=== PATIENT | male | born 1970 | race Caucasian/White ===

== ENCOUNTER 2022-04-04 10:21 | Inpatient (IN) ==
[2022-04-04] MEDS ORDERED: ADENOSINE IV SOLN 3 MG/ML 2 ML VIAL IV ONE (10:32)
[2022-04-04] MEDS ORDERED: ASPIRIN CHEW 324 MG PO STA (10:36)
[2022-04-04] MEDS ORDERED: SODIUM CHLORIDE 0.9% 1000ML 1,000 ML IV STA (10:36)
[2022-04-04] MEDS ORDERED: ADENOSINE IV SOLN 3 MG/ML 2 ML VIAL IV STA ×2 (10:38)
[2022-04-04] MEDS ORDERED: LORazepam 2 MG/1 ML VIAL IV STA (10:38)
[2022-04-04] MEDS ORDERED: SODIUM CHLORIDE 0.9% 1000ML 1,000 ML IV ONE (10:38)
[2022-04-04] MEDS ORDERED: LORazepam 2 MG/1 ML VIAL ONE (10:41)
[2022-04-04] MEDS ORDERED: dilTIAZem HCl 5 MG/ML 5 ML VIAL IV STA (10:45)
[2022-04-04] MEDS ORDERED: STAT IV Infusion **Titration per Protocol STA (10:45)
[2022-04-04] MEDS ORDERED: dilTIAZem HCl 5 MG/ML 5 ML VIAL IV ONE (10:46)
[2022-04-04 11:01] LABS: Basophils # (auto) 0.04 K/uL (0-0.2); Basophils % (auto) 0.3 %; Eosinophils # (auto) 0.32 K/uL (0-0.50); Eosinophils % (auto) 2.5 %; Hemoglobin 15.1 g/dl (14.0-18.0); Immature Granulocytes # (auto) 0.04 K/uL (0.00-0.02); Immature Granulocytes % (auto) 0.3 %; Lymphocytes # (auto) 2.35 K/uL (1.2-3.4); Lymphocytes % (auto) 18.4 %; Mean Corpuscular Hemoglobin 32.9 pg (25.0-34.0); Mean Corpuscular Hgb Conc 32.8 g/dL (32.0-36.0); Mean Corpuscular Volume 100.2 fL (80.0-100.0); Mean Platelet Volume 9.8 fL (9.4-12.4); Monocytes # (auto) 0.87 K/uL (0.24-0.82); Monocytes % (auto) 6.8 %; Neutrophils # (auto) 9.12 K/uL (1.4-6.5); Neutrophils % (auto) 71.7 %; Platelet Count 294 K/uL (130-400); RDW Coefficient of Variation 13.2 % (11.5-14.5); RDW Standard Deviation 48.1 fL (36.4-46.3); Red Blood Count 4.59 M/uL (4.63-6.08); White Blood Count 12.74 K/ul (4.8-10.8)
--- NOTE | 2022-04-04 11:11 | Emergency Department Note ---
History of Present Illness General Chief Complaint: Cardiac Assessment Stated Complaint: HEART RACING/SWEATING/SOB LIGHTHEADED Time Seen by Provider: 04/04/22 10:31 History of Present Illness Provider Complaint: + rapid heart beat and + palpitations Onset (ago): 2 day(s) Duration: + Worsening Severity: severe Maximum Pain Intensity: 3 Current Pain Intensity: 3 Context: + occurred during rest and + awoke with symptoms Arrhythmia history: + atrial fibrillation (atrial flutter), + history of ablation (2) and + history of electrical cardioversion (4); no on anti- coagulants Associated symptoms: + chest pain, + shortness of breath and + diaphoresis; no syncope, no nausea, no vomiting or no cough Treatments prior to arrival: + beta-jacinto HPI narrative: Patient reports he is moving his daughter up to college from [place]. The patient reports he was sweaty in the hotel all of last night. Patient reports he was at the [place] and recently got back from vacation in [place] and was drinking heavily during concerts there. The patient states he returned from a vacation in yesterday. Past Med/Surg History Medical History Atrial fibrillation No pertinent family history Surgical History No pertinent past surgical history Social History Smoking Status: Never smoker Feels Safe at Home: Yes Review of Systems A total of 10 systems reviewed and were otherwise negative Physical Exam Vital Signs: Vital Signs - 24 hr 04/04/22 10:25 04/04/22 10:36 04/04/22 10:38 Pulse Rate 158 H 158 H 163 H Pulse Rate [Apical ] Pulse Rate from Sp O2 Sensor Pulse Rhythm Regular Respiratory Rate 22 22 19 Respiratory Effort / Characteristics Non-Labored Respiratory Depth Normal Blood Pressure 107/60 Blood Pressure [Le ft Arm] Blood Pressure Lidia n 75 Blood Pressure Lidia n [Left Arm] Pulse Oximetry 98 98 Oxygen Delivery Me thod Room Air Room Air Oxygen Flow Rate Sepsis Recent Feve r Within 48 Hours No Sepsis New/Unexpla ined Change in Men vicente Status No Sepsis Action Take n by Nursing No Action Required 04/04/22 10:45 04/04/22 10:46 04/04/22 10:48 Pulse Rate 164 H 163 H 164 H Pulse Rate [Apical ] Pulse Rate from Sp O2 Sensor Pulse Rhythm Respiratory Rate 18 24 24 Respiratory Effort / Characteristics Respiratory Depth Blood Pressure 94/70 L 92/68 L Blood Pressure [Le ft Arm] Blood Pressure Lidia n 78 76 Blood Pressure Lidia n [Left Arm] Pulse Oximetry Oxygen Delivery Me thod Oxygen Flow Rate Sepsis Recent Feve r Within 48 Hours Sepsis New/Unexpla ined Change in Men vicente Status Sepsis Action Take n by Nursing 04/04/22 10:51 04/04/22 10:57 04/04/22 11:00 Pulse Rate 164 H 164 H 164 H Pulse Rate [Apical ] Pulse Rate from Sp O2 Sensor Pulse Rhythm Respiratory Rate 24 20 27 H Respiratory Effort / Characteristics Respiratory Depth Blood Pressure 95/76 L 104/77 97/74 L Blood Pressure [Le ft Arm] Blood Pressure Lidia n 82 86 81 Blood Pressure Lidia n [Left Arm] Pulse Oximetry 94 Oxygen Delivery Me thod Oxygen Flow Rate Sepsis Recent Feve r Within 48 Hours Sepsis New/Unexpla ined Change in Men vicente Status Sepsis Action Take n by Nursing 04/04/22 11:02 04/04/22 11:15 04/04/22 11:30 Pulse Rate 164 H 86 84 Pulse Rate [Apical ] Pulse Rate from Sp O2 Sensor 86 84 Pulse Rhythm Respiratory Rate 18 18 26 H Respiratory Effort / Characteristics Respiratory Depth Blood Pressure 118/74 103/62 109/73 Blood Pressure [Le ft Arm] Blood Pressure Lidia n 88 75 85 Blood Pressure Lidia n [Left Arm] Pulse Oximetry 96 98 Oxygen Delivery Me thod Oxygen Flow Rate Sepsis Recent Feve r Within 48 Hours Sepsis New/Unexpla ined Change in Men vicente Status Sepsis Action Take n by Nursing 04/04/22 11:42 04/04/22 11:45 04/04/22 12:00 Pulse Rate 84 85 Pulse Rate [Apical ] Pulse Rate from Sp O2 Sensor 84 85 Pulse Rhythm Respiratory Rate 18 28 H Respiratory Effort / Characteristics Non-Labored Respiratory Depth Normal Blood Pressure 108/71 111/75 Blood Pressure [Le ft Arm] Blood Pressure Lidia n 83 87 Blood Pressure Lidia n [Left Arm] Pulse Oximetry 98 97 Oxygen Delivery Me thod Room Air Nasal Cannula Oxygen Flow Rate 2 Sepsis Recent Feve r Within 48 Hours Sepsis New/Unexpla ined Change in Men vicente Status Sepsis Action Take n by Nursing 04/04/22 12:15 04/04/22 13:38 Pulse Rate 84 Pulse Rate [Apical ] 84 Pulse Rate from Sp O2 Sensor 84 Pulse Rhythm Respiratory Rate 19 24 Respiratory Effort / Characteristics Non-Labored Sponta neous Respiratory Depth Normal Blood Pressure 113/74 Blood Pressure [Le ft Arm] 121/78 Blood Pressure Lidia n 87 Blood Pressure Lidia n [Left Arm] 92 Pulse Oximetry 97 96 Oxygen Delivery Me thod Nasal Cannula Room Air Oxygen Flow Rate 2 Sepsis Recent Feve r Within 48 Hours Sepsis New/Unexpla ined Change in Men vicente Status Sepsis Action Take n by Nursing Physical Exam: Physical Exam GENERAL: Distressed HENT: Exam performed. - Head: Normocephalic and atraumatic. - Right Ear: External ear normal. No mastoid tenderness. - Left Ear: External ear normal. No mastoid tenderness. - Mouth/Throat: The oropharynx is clear and moist. No trismus in the jaw. No dental abscesses or uvula swelling. No oropharyngeal exudate or tonsillar abscesses. EYES: Conjunctivae and EOM are normal. Pupils are equal, round, and reactive to light. Right eye exhibits no discharge. Left eye exhibits no discharge. No scleral icterus. NECK: Normal range of motion. Neck supple. No JVD present. No spinous process tenderness present. No carotid bruit present. No rigidity. No tracheal deviation and normal range of motion present. No Brudzinski's sign and no Kernig's sign noted. CV: Tachycardic rate, regular rhythm, normal heart sounds and intact distal pulses. There is no peripheral edema. Palpable radial pulses bue. PULM/CHEST: Effort normal and breath sounds normal. No respiratory distress. No stridor. He has no wheezes. He has no rales. - Chest Wall: He exhibits no tenderness. ABD: The abdomen is soft. Bowel sounds are normal. He has no distension. No mass is present. There is no tenderness. There is no rebound, no guarding, no Gillespie's sign and no tenderness at McBurney's point. Rovsig negative. MUSC/SKEL: Normal range of motion. There is no peripheral edema, tenderness or deformity. LYMPH: No cervical adenopathy. NEURO: He is alert and oriented to person, place, and time. He has normal strength. No cranial nerve deficit or sensory deficit. Coordination and gait normal. GCS eye subscore is 4. GCS verbal subscore is 5. GCS motor subscore is 6. Cerebellar tests wnl. SKIN: Skin is warm and dry. He is not diaphoretic. PSYCH: He has a normal mood and affect. Behavior is normal. Judgment and thought content normal. Course Course 1031: The patient was evaluated in room C4. A complete history and physical exam was performed Cardiac monitoring: An order was placed for continuous cardiac monitoring. The monitor shows a rate of 167 with SVT rhythm Large-bore IV access was obtained and the patient. IV fluids started on the pat ient. Pads were placed on the patient. Adenosine 6 mg IV push was placed on the patient with no significant improvement or change in the patient's rhythm. Ativan 1 mg was ordered for the patient and then adenosine 12 mg IV push was given to the patient. During the continuous EKG monitoring, the patient's heart rate transiently improved and it appeared that the patient was in atrial flutter. Cardizem 20 mg ordered for the patient given and given since his blood pressure was stable with the IV fluids. The Cardizem IV push improved the patient's ventricular rate into the 80s and it does appear that the patient is in atrial flutter. Patient will be placed on a Cardizem drip. 1429: Vital signs stable on Cardizem drip. Troponins elevated mildly. D-dimer elevated, CTA of the chest shows no PE. Spoke with Amie Lipscomb hospitalist team who stated to admit to Dr. Catalan hospitalist team. Administered Medications Diltiazem HCl 125 mg/ Dextrose 125 mls @ 5 mls/hr IV .Q24H [facility]; Protocol Stop: 05/04/22 10:44 Last Admin: 04/04/22 11:20 Dose: 5 mg/hr, 5 mls/hr Documented By: ARTI Co-signed By: TRH Discontinued Medications Adenosine (Adenosine Iv Soln 3 Mg/Ml 2 Ml Vial) Confirm Administered Dose 18 mg IV .STK-MED ONE Stop: 04/04/22 10:33 Last Admin: 04/04/22 11:25 Dose: Not Given Documented By: ARTI Adenosine (Adenosine Iv Soln 3 Mg/Ml 2 Ml Vial) 6 mg IV NOW STA Stop: 04/04/22 10:39 Last Admin: 04/04/22 10:40 Dose: 6 mg Documented By: ARTI Adenosine (Adenosine Iv Soln 3 Mg/Ml 2 Ml Vial) 12 mg IV NOW STA Stop: 04/04/22 10:39 Last Admin: 04/04/22 10:52 Dose: 12 mg Documented By: ARTI Aspirin (Aspirin Chew 324 Mg) 324 mg PO NOW STA Stop: 04/04/22 10:37 Last Admin: 04/04/22 11:30 Dose: 324 mg Documented By: ARTI Diltiazem HCl (Diltiazem Hcl 5 Mg/Ml 5 Ml Vial) 20 mg IV NOW STA Stop: 04/04/22 10:46 Last Admin: 04/04/22 11:05 Dose: 20 mg Documented By: ARTI Co-signed By: KALIN Diltiazem HCl (Diltiazem Hcl 5 Mg/Ml 5 Ml Vial) Confirm Administered Dose 25 mg IV .STK-MED ONE Stop: 04/04/22 10:47 Last Admin: 04/04/22 11:40 Dose: Not Given Documented By: ARTI Sodium Chloride (Nss 1000ml) 1,000 mls @ 999 mls/hr IV .Q1H1M STA Stop: 04/04/22 11:36 Last Infusion: 04/04/22 11:41 Dose: 0 mls/hr Documented By: Admin: 04/04/22 10:38 Dose: 999 mls/hr Documented By: ARTI Sodium Chloride (Nss 1000ml) 1,000 mls @ 999 mls/hr IV .Q1H1M ONE Stop: 04/04/22 11:38 Last Infusion: 04/04/22 12:17 Dose: 0 mls/hr Documented By: Admin: 04/04/22 11:10 Dose: 999 mls/hr Documented By: ARTI Ioversol (Optiray 300 500ml) 120 ml IV ONCE ONE Stop: 04/04/22 13:28 Last Admin: 04/04/22 13:28 Dose: 120 ml Documented By: JYOTI Lorazepam (Lorazepam 2 Mg/1 Ml Vial) 1 mg IV NOW STA; Protocol Stop: 04/04/22 10:39 Last Admin: 04/04/22 10:50 Dose: 1 mg Documented By: ARTI Lorazepam (Lorazepam 2 Mg/1 Ml Vial) Confirm Administered Dose 1 mg .ROUTE .STK-MED ONE Stop: 04/04/22 10:42 Last Admin: 04/04/22 11:25 Dose: Not Given Documented By: ARTI Miscellaneous (Stat Iv Infusion Titration Per Protocol) 1 each N/A NOW STA Stop: 04/04/22 10:46 Last Admin: 04/04/22 11:40 Dose: Not Given Documented By: ARTI Medical Decision Making Laboratory Data Result diagrams: 04/04/22 10:40 04/04/22 10:40 Lab Results 04/04/22 04/04/22 04/04/22 Range/Units 10:40 10:40 10:40 WBC 12.74 H (4.8-10.8) K/ul RBC 4.59 L (4.63-6.08) M/uL Hgb 15.1 (14.0-18.0) g/dl Hct 46.0 (40.1-51.0) % MCV 100.2 H (80.0-100.0) fL MCH 32.9 (25.0-34.0) pg MCHC 32.8 (32.0-36.0) g/dL RDW Std Deviation 48.1 H (36.4-46.3) fL RDW Coeff of Darby 13.2 (11.5-14.5) % Plt Count 294 (130-400) K/uL MPV 9.8 (9.4-12.4) fL Immature Gran % (Auto) 0.3 % Neut % (Auto) 71.7 % Lymph % (Auto) 18.4 % [place] % (Auto) 6.8 % Eos % (Auto) 2.5 % Baso % (Auto) 0.3 % Neut # (Auto) 9.12 H (1.4-6.5) K/uL Lymph # (Auto) 2.35 (1.2-3.4) K/uL [place] # (Auto) 0.87 H (0.24-0.82) K/uL Eos # (Auto) 0.32 (0-0.50) K/uL Baso # (Auto) 0.04 (0-0.2) K/uL Immature Gran # (Auto) 0.04 H (0.00-0.02) K/uL PT Cancelled INR Cancelled APTT Cancelled PTT Ratio Cancelled D-Dimer Cancelled Sodium 139 (136-145) mmol/L Potassium 4.9 (3.5-5.1) mmol/L Chloride 103 (98-107) mmol/L Carbon Dioxide 26 (21-32) mmol/L Anion Gap 10 (3-11) BUN 31 H (6-23) mg/dl Creatinine 1.47 H (0.6-1.4) mg/dl Est Cr Clr Drug Dosing 90.3 ml/min Est GFR ( Amer) 63.1 ml/min Est GFR (Non-Af Amer) 54.5 ml/min BUN/Creatinine Ratio 21.1 H (10-20) Glucose 143 H (70-99(Fasting)) mg/dl Calcium 8.9 (8.5-10.1) mg/dl Magnesium 1.8 (1.7-2.4) mg/dl Troponin I High Sens 40.2 H (0-20) pg/ml Lipase 28 (11-82) U/L SARS-CoV-2, RNA, NAAT (NEGATIVE) 04/04/22 04/04/22 04/04/22 Range/Units 11:29 11:50 13:00 WBC (4.8-10.8) K/ul RBC (4.63-6.08) M/uL Hgb (14.0-18.0) g/dl Hct (40.1-51.0) % MCV (80.0-100.0) fL MCH (25.0-34.0) pg MCHC (32.0-36.0) g/dL RDW Std Deviation (36.4-46.3) fL RDW Coeff of Darby (11.5-14.5) % Plt Count (130-400) K/uL MPV (9.4-12.4) fL Immature Gran % (Auto) % Neut % (Auto) % Lymph % (Auto) % [place] % (Auto) % Eos % (Auto) % Baso % (Auto) % Neut # (Auto) (1.4-6.5) K/uL Lymph # (Auto) (1.2-3.4) K/uL [place] # (Auto) (0.24-0.82) K/uL Eos # (Auto) (0-0.50) K/uL Baso # (Auto) (0-0.2) K/uL Immature Gran # (Auto) (0.00-0.02) K/uL PT 11.1 INR 1.0 APTT 24.4 PTT Ratio 0.9 D-Dimer 520 H* Sodium (136-145) mmol/L Potassium (3.5-5.1) mmol/L Chloride (98-107) mmol/L Carbon Dioxide (21-32) mmol/L Anion Gap (3-11) BUN (6-23) mg/dl Creatinine (0.6-1.4) mg/dl Est Cr Clr Drug Dosing ml/min Est GFR ( Amer) ml/min Est GFR (Non-Af Amer) ml/min BUN/Creatinine Ratio (10-20) Glucose (70-99(Fasting)) mg/dl Calcium (8.5-10.1) mg/dl Magnesium (1.7-2.4) mg/dl Troponin I High Sens 42.7 H (0-20) pg/ml Lipase (11-82) U/L SARS-CoV-2, RNA, NAAT NEGATIVE (NEGATIVE) Imaging Data Radiologist's Impression: Chest X-Ray 04/04/22 10:36 SINGLE VIEW CHEST CLINICAL HISTORY: Atypical chest pain. FINDINGS: An AP, portable, upright chest radiograph is obtained. No prior studies are available for comparison at the time of dictation. The heart is enlarged. There is pulmonary vascular congestion. Mild atelectasis is noted at the lung bases. The lungs and pleural spaces are otherwise clear. No pneumothorax is seen. The bony thorax is grossly intact. IMPRESSION: Cardiomegaly with pulmonary vascular congestion. ACT 112: Negative or not required by law. Electronically signed by: Donnell Pace M.D. 04/04/2022 11:23 AM Chest CTA 04/04/22 12:03 CT ANGIOGRAM OF THE CHEST CLINICAL HISTORY: Dyspnea. Atypical chest pain. COMPARISON STUDY: Chest x-ray dated 04/04/2022. TECHNIQUE: Following the IV administration of 120 cc of Optiray 300, CT angiogram of the chest was performed from the upper abdomen to the thoracic inlet utilizing the pulmonary embolus protocol. Images are reviewed in the axial, sagittal, and coronal planes. 3-D MIPS images are created and assessed. IV contrast was administered without complication. A dose lowering technique was utilized adhering to the principles of ALARA. Examination is degraded by motion artifact. CT DOSE: 1020.27 mGy.cm FINDINGS: Thyroid: Imaged portions of the thyroid gland are normal in size and attenuation. Thoracic aorta: The thoracic aorta is normal in caliber and demonstrates bovine variant arch anatomy. No dissection is seen. Pulmonary vasculature: The pulmonary trunk is normal in caliber. There are no filling defects identified in main, lobar, or proximal segmental pulmonary branches to suggest pulmonary embolus. Evaluation of the segmental and subsegmental branches is by motion artifact. Heart: The heart is normal in size and without pericardial effusion. Lungs and pleural spaces: Evaluation of the lung parenchyma is modestly degraded by motion artifact. Mild emphysematous change is noted at the apices. Intralobular septal thickening throughout both lungs indicates congestive failure. The trachea and central airways are clear. No airspace consolidation is seen typical for pneumonia. There are small pleural effusions with dependent atelectasis. Mediastinum: There is no mediastinal lymphadenopathy. Zoila: Clear. Axillae: There is no axillary lymphadenopathy. Upper abdomen: Partially visualized upper abdominal viscera is within normal limits. Skeletal structures: No lytic or blastic bony lesions are seen. IMPRESSION: 1. There is no evidence of central pulmonary embolus in the main, lobar, or proximal segmental pulmonary arteries. Evaluation of the segmental and subsegmental branches is compromised by motion artifact. 2. Cardiomegaly with evidence of congestive failure. 3. Small pleural effusions. 4. Additional findings as above. ACT 112: Negative or not required by law. Electronically signed by: Donnell Pace M.D. 04/04/2022 2:25 PM ECG Data Additional Comments: EKG 1 at 1033: SVT with rate of 165. QRS [address] elevation or ST depression. EKG #2 at 1104 status post adenosine 6 mg IV push, adenosine 12 mg IV push, and Cardizem 20 mg IV push: Atrial flutter with a ventricular rate of 84. QRS 94 QTc [address] elevation or ST depression. MDM Narrative 1031: The patient was evaluated in room C4. A complete history and physical exam was performed Cardiac monitoring: An order was placed for continuous cardiac monitoring. The monitor shows a rate of 167 with SVT rhythm Large-bore IV access was obtained and the patient. IV fluids started on the patient. Pads were placed on the patient. Adenosine 6 mg IV push was placed on the patient with no significant improvement or change in the patient's rhythm. Ativan 1 mg was ordered for the patient and then adenosine 12 mg IV push was given to the patient. During the continuous EKG monitoring, the patient's heart rate transiently improved and it appeared that the patient was in atrial flutter. Cardizem 20 mg ordered for the patient given and given since his blood pressure was stable with the IV fluids. The Cardizem IV push improved the pat ient's ventricular rate into the 80s and it does appear that the patient is in atrial flutter. Patient will be placed on a Cardizem drip. 1429: Vital signs stable on Cardizem drip. Troponins elevated mildly. D-dimer elevated, CTA of the chest shows no PE. Spoke with Amie Lipscomb hospitalist team who stated to admit to Dr. Catalan hospitalist team. Impression & Plan Atrial flutter with rapid ventricular response Critical Care Time Critical Care Time: Yes Total Critical Care Time: 51 I have personally spent greater than 51 minutes of critical care time in the direct management of this patient. This includes bedside care, interpretation of diagnostic studies, and testing, discussion with consultants, patient, and family members, and other required patient management activities. This 51 minutes is in excess of all separately billable procedures. Discharge Plan Visit Data Chief Complaint: Cardiac Assessment Stated Complaint: HEART RACING/SWEATING/SOB LIGHTHEADED ED Provider: Jimbo iRley Discharge Problem: Atrial flutter with rapid ventricular response Patient Disposition: Admitted As Inpatient Forms Stand Alone Forms: My [facility] Referrals Referrals: PCP,NO [Primary Care Provider] -
[2022-04-04] MEDS: dilTIAZem HCL 125 MG in DEXTROSE 5% 100 ML IV SCH (11:20)
--- NOTE | 2022-04-04 11:24 | XRay Report ---
SINGLE VIEW CHEST CLINICAL HISTORY: Atypical chest pain. FINDINGS: An AP, portable, upright chest radiograph is obtained. No prior studies are available for c omparison at the time of dictation. The heart is enlarged. There is pulmonary vascular congestion. Mi ld atelectasis is noted at the lung bases. The lungs and pleural spaces are otherwise clear. No pneum othorax is seen. The bony thorax is grossly intact. IMPRESSION: Cardiomegaly with pulmonary vascular congestion. ACT 112: Negative or not required by law. Electronically signed by: Donnell Pace M.D. 04/04/2022 11:23 AM
[2022-04-04 11:27] LABS: BUN Creatinine Ratio 21.1 (10-20); Calcium 8.9 mg/dl (8.5-10.1); Creatinine Clr Calc Pharmacy 90.3 ml/min; Est GFR (African American) 63.1 ml/min; Est GFR (Non-African American) 54.5 ml/min; Magnesium 1.8 mg/dl (1.7-2.4); Potassium 4.9 mmol/L (3.5-5.1)
[2022-04-04 11:30] LABS: Troponin I High Sensitivity 40.2 pg/ml (0-20)
[2022-04-04 11:59] LABS: Partial Thromboplastin Ratio 0.9; Partial Thromboplastin Time 24.4 Seconds (21.0-31.0); Prothrombin Time 11.1 Seconds (9.0-12.0)
[2022-04-04 12:05] LABS: D Dimer 520 ug/L FEU (0-500)
[2022-04-04] MEDS ORDERED: OPTIRAY 300 500mL IV ONE (13:27)
--- NOTE | 2022-04-04 14:27 | CT Scan Report ---
CT ANGIOGRAM OF THE CHEST CLINICAL HISTORY: Dyspnea. Atypical chest pain. COMPARISON STUDY: Chest x-ray dated 04/04/2022. TECHNIQUE: Following the IV administration of 120 cc of Optiray 300, CT angiogram of the chest was pe rformed from the upper abdomen to the thoracic inlet utilizing the pulmonary embolus protocol. Images are reviewed in the axial, sagittal, and coronal planes. 3-D MIPS images are created and assessed. I V contrast was administered without complication. A dose lowering technique was utilized adhering to the principles of ALARA. Examination is degraded by motion artifact. CT DOSE: 1020.27 mGy.cm FINDINGS: Thyroid: Imaged portions of the thyroid gland are normal in size and attenuation. Thoracic aorta: The thoracic aorta is normal in caliber and demonstrates bovine variant arch anatomy. No dissection is seen. Pulmonary vasculature: The pulmonary trunk is normal in caliber. There are no filling defects identif ied in main, lobar, or proximal segmental pulmonary branches to suggest pulmonary embolus. Evaluation of the segmental and subsegmental branches is by motion artifact. Heart: The heart is normal in size and without pericardial effusion. Lungs and pleural spaces: Evaluation of the lung parenchyma is modestly degraded by motion artifact. Mild emphysematous change is noted at the apices. Intralobular septal thickening throughout both lung s indicates congestive failure. The trachea and central airways are clear. No airspace consolidation is seen typical for pneumonia. There are small pleural effusions with dependent atelectasis. Mediastinum: There is no mediastinal lymphadenopathy. [place]: Clear. Axillae: There is no axillary lymphadenopathy. Upper abdomen: Partially visualized upper abdominal viscera is within normal limits. Skeletal structures: No lytic or blastic bony lesions are seen. IMPRESSION: 1. There is no evidence of central pulmonary embolus in the main, lobar, or proximal segmental pulmon ellie arteries. Evaluation of the segmental and subsegmental branches is compromised by motion artifact . 2. Cardiomegaly with evidence of congestive failure. 3. Small pleural effusions. 4. Additional findings as above. ACT 112: Negative or not required by law. Electronically signed by: Donnell Pace M.D. 04/04/2022 2:25 PM
--- NOTE | 2022-04-04 14:40 | History & Physical Report ---
Date of Service April 04, 2022 Assessment & Plan (1) Atrial flutter with rapid ventricular response: Plan: Patient is a 51-year-old male with PMH atrial flutter and atrial fibrillation s/p cardioversion x 4 (last was ~2014), s/p ablation x 2 (last ~10 years ago), not on anticoagulation, HTN, presented to ER with c/o palpitations. 5 days ago episode of palpitations lasting 3-4 hours. Over 24 hrs of palpitations, dizziness, SOB, diaphoresis. Took 40mg nadolol around 11:30P-12:00A. In ER patient afebrile, BP: 107/60. Initial HR in 160's. Appeared like SVT on initial EKG. Was given adenosine 6mg IV in ER without improvement followed by additional 12mg and appeared to be in atrial flutter. Was given cardizem 20mg IV and is on Cardizem drip at 5mg/hr with HR in 80's and patient no longer symptomatic. D-dimer: 520 CTA chest: no PE Continue Cardizem drip, plan to wean when able Start nadolol 40mg BID Heparin drip Echo Trend troponin Cardiology consult, spoke with Dr Raymond, requests pt NPO TSH pending CBC, BMP in am (2) Elevated troponin: Plan: High sensitivity troponin: 42 Likely demand from rapid HR Trend troponin EKG in am (3) HTN (hypertension): Plan: Change home nadolol 20mg daily and increase to 40mg BID Monitor (4) Renal insufficiency: Plan: BUN: 31. Cr: 1.47. Unsure of baseline In ER given NSS Monitor renal functions, avoid nephrotoxic agents when possible DVT Prophylaxis On Heparin IV Full Code as per discussion with pt Patient from [place]. Unsure of PCP name. Follows with Dr Missael Fuentes for cardiology care Pt was seen and care coordinated with Dr Salazar. See addendum History of Present Illness Chief Complaint: Palpitations Primary Care Provider: NO PCP Patient is a 51-year-old male with PMH atrial flutter and atrial fibrillation s/p cardioversion x 4 (last was ~2014), s/p ablation x 2 (last ~10 years ago), not on anticoagulation, HTN, presented to ER with c/o palpitations. Patient reports was on vacation last week. 5 days ago felt like his heart was racing that lasted 3-4 hours. He states he took Benadryl at that time. 2 days ago drinking 6-7 drinks of hard liquor. Was drinking alcohol most of the week while on vacation. He normally has couple of drinks on the weekends. Yesterday morning felt like heart was racing. Travelled from [place] to [place] today to move his daughter in to college. He felt like having heart racing all day, worse at dinner time. Last night woke up from sleep around 11:30PM very diaphoretic with increased heart racing, SOB, nausea, dizziness. He took extra 40mg Nadolol during the night. He tried Valsalva maneuver without relief. Patient also reports that he has torn ACL to right leg. Had swelling to right leg and reports had US RLE to r/o DVT that was negative approx 1 month ago. Right foot was swollen after standing all day couple of days ago. Taking Aleve and elevated foot. Denies fever/chills, V/D/C, LAINEZ, syncope, vision changes, neck pain, orthopnea, cough, sore throat, choking, otalgia, rhinorrhea, abdominal pain, paresthesias, weakness, extremity weakness, rashes, urinary symptoms. Follows with [facility] cardiology in [place]- Dr Missael Fuentes Allergies Allergy/AdvReac Type Severity Reaction Status Date / Time No Known Drug Allergies Allergy Verified 04/04/22 15:05 Home Medications Medication Instructions Recorded Confirmed Type aspirin 325 mg tablet 325 mg PO DAILY 04/04/22 04/04/22 History multivitamin 1 tab PO DAILY 04/04/22 04/04/22 History nadolol 20 mg tablet 20 mg PO DAILY 04/04/22 04/04/22 History Past Med/Surg History Medical History (Updated 04/04/22 @ 15:50 by Alysia Iverson PA-C) Atrial fibrillation HTN (hypertension) Surgical History S/P skin biopsy Family History Brother Cancer Mother Hypertension Social History Smoking Status: Never smoker Hx Alcohol Use: Yes Alcohol Intake Frequency: 2-3 x/Week Hx Substance Use: No Feels Safe at Home: Yes Review of Systems Review of Systems: All systems reviewed & are unremarkable except as noted in HPI & below Physical Exam Physical Exam: General: no acute distress, obese Head: normocephalic, atraumatic Eyes: conjunctiva non-injected, anicteric ENT: normal inspection external ears, nose, mucous membranes moist Neck: supple, trachea midline Lungs: clear, no respiratory distress, no wheezing/rhonchi/rales CV: irregularly irregular, rate 86, no murmur, trace pretibial edema Abd: protuberant, normal BS, soft, non-tender Ext: no cyanosis, no erythema, no calf tenderness Neuro: A&O x 3, no focal deficits noted, normal affect Skin: warm, dry Results & Data Results & Data ([facility]) Vital Signs (Past 12 Hours) Vital Signs Pulse Pulse Resp BP BP Pulse Ox O2 Del Method 04/04/22 13:38 84 24 121/78 96 Room Air 04/04/22 12:15 84 19 113/74 97 Nasal Cannula 04/04/22 12:00 85 28 H 111/75 97 Nasal Cannula 04/04/22 11:45 84 18 108/71 98 04/04/22 11:42 Room Air 04/04/22 11:30 84 26 H 109/73 98 04/04/22 11:15 86 18 103/62 96 04/04/22 11:02 164 H 18 118/74 04/04/22 11:00 164 H 27 H 97/74 L 04/04/22 10:57 164 H 20 104/77 04/04/22 10:51 164 H 24 95/76 L 94 04/04/22 10:48 164 H 24 92/68 L 04/04/22 10:46 163 H 24 94/70 L 04/04/22 10:45 164 H 18 04/04/22 10:38 163 H 19 04/04/22 10:36 158 H 22 98 Room Air 04/04/22 10:25 158 H 22 107/60 98 Room Air O2 Flow Rate 04/04/22 13:38 04/04/22 12:15 2 04/04/22 12:00 2 04/04/22 11:45 04/04/22 11:42 04/04/22 11:30 04/04/22 11:15 04/04/22 11:02 04/04/22 11:00 04/04/22 10:57 04/04/22 10:51 04/04/22 10:48 04/04/22 10:46 04/04/22 10:45 04/04/22 10:38 04/04/22 10:36 04/04/22 10:25 Laboratory Results Short CBC 04/04/22 Range/Units 10:40 WBC 12.74 H (4.8-10.8) K/ul Hgb 15.1 (14.0-18.0) g/dl Hct 46.0 (40.1-51.0) % Plt Count 294 (130-400) K/uL BMP 04/04/22 10:40 Sodium 139 Potassium 4.9 Chloride 103 Carbon Dioxide 26 BUN 31 H Creatinine 1.47 H Glucose 143 H Calcium 8.9 Diagnostic Findings Chest X-Ray 04/04/22 10:36 SINGLE VIEW CHEST CLINICAL HISTORY: Atypical chest pain. FINDINGS: An AP, portable, upright chest radiograph is obtained. No prior studies are available for comparison at the time of dictation. The heart is enlarged. There is pulmonary vascular congestion. Mild atelectasis is noted at the lung bases. The lungs and pleural spaces are otherwise clear. No pneumothorax is seen. The bony thorax is grossly intact. IMPRESSION: Cardiomegaly with pulmonary vascular congestion. ACT 112: Negative or not required by law. Electronically signed by: Donnell Pace M.D. 04/04/2022 11:23 AM Chest CTA 04/04/22 12:03 CT ANGIOGRAM OF THE CHEST CLINICAL HISTORY: Dyspnea. Atypical chest pain. COMPARISON STUDY: Chest x-ray dated 04/04/2022. TECHNIQUE: Following the IV administration of 120 cc of Optiray 300, CT angiogram of the chest was performed from the upper abdomen to the thoracic inlet utilizing the pulmonary embolus protocol. Images are reviewed in the axial, sagittal, and coronal planes. 3-D MIPS images are created and assessed. IV contrast was administered without complication. A dose lowering technique was utilized adhering to the principles of ALARA. Examination is degraded by motion artifact. CT DOSE: 1020.27 mGy.cm FINDINGS: Thyroid: Imaged portions of the thyroid gland are normal in size and attenuation. Thoracic aorta: The thoracic aorta is normal in caliber and demonstrates bovine variant arch anatomy. No dissection is seen. Pulmonary vasculature: The pulmonary trunk is normal in caliber. There are no filling defects identified in main, lobar, or proximal segmental pulmonary branches to suggest pulmonary embolus. Evaluation of the segmental and subsegmental branches is by motion artifact. Heart: The heart is normal in size and without pericardial effusion. Lungs and pleural spaces: Evaluation of the lung parenchyma is modestly degraded by motion artifact. Mild emphysematous change is noted at the apices. Intra lobular septal thickening throughout both lungs indicates congestive failure. The trachea and central airways are clear. No airspace consolidation is seen typical for pneumonia. There are small pleural effusions with dependent atelectasis. Mediastinum: There is no mediastinal lymphadenopathy. Zoila: Clear. Axillae: There is no axillary lymphadenopathy. Upper abdomen: Partially visualized upper abdominal viscera is within normal limits. Skeletal structures: No lytic or blastic bony lesions are seen. IMPRESSION: 1. There is no evidence of central pulmonary embolus in the main, lobar, or proximal segmental pulmonary arteries. Evaluation of the segmental and subsegmental branches is compromised by motion artifact. 2. Cardiomegaly with evidence of congestive failure. 3. Small pleural effusions. 4. Additional findings as above. ACT 112: Negative or not required by law. Electronically signed by: Donnell Pace M.D. 04/04/2022 2:25 PM Supervising Physician Co-Signing Physician Notes Pt is 51 y/o M with hx of Afib/Aflutter with multiple hx of cardioversion and ablation (last one in 2014), HTN admitted for SVT and Aflutter with RVR. PE: NAD, obese pt Cardiac: Normal S1/S2, no murmur Lungs: CTA, no wheezing or crackles Abd: obese abd, NT, soft MSK: b/l mild pitting edema of LE Psych: AAOx3, normal affect A/P: Aflutter with RVR and SVT: -currently on Cardizem drip: heart rate is improving -trop is elevated but pt denied any acute chest pain --- will trend trop -CTA chest showed no PE but cardiomegaly with pleural effusions --- will get Echo -will start pt on heparin drip and cardiology consult -Cr is slightly elevated: will trend BMP -admit to tele Agree with A/P by Alysia Iverson PA-C
[2022-04-04] MEDS ORDERED: ACETAMINOPHEN 325 MG TAB PO PRN (18:42)
[2022-04-04] MEDS ORDERED: POLYETHYLENE (MIRALAX) 17 GM PACK PO PRN (18:42)
[2022-04-04] MEDS ORDERED: ALUMINUM/MAGNESIUM SUSP 30 ML UDC PO PRN (18:42)
[2022-04-04] MEDS: Heparin IV Adult Wt-Based Standard *NO* Bolus Protocol IV SCH ×4 (21:20→22:08)
[2022-04-04] MEDS: nadoloL 40 MG TAB PO SCH (21:32)
[2022-04-04] MEDS: HEPARIN SODIUM/DEXTROSE 25,000 UNITS/500 ML BAG IV SCH (21:32)
[2022-04-05 03:35] LABS: Basophils # (auto) 0.03 K/uL (0-0.2); Basophils % (auto) 0.4 %; Eosinophils # (auto) 0.57 K/uL (0-0.50); Eosinophils % (auto) 6.7 %; Hematocrit (blood only) 37.9 % (40.1-51.0); Hemoglobin 12.7 g/dl (14.0-18.0); Immature Granulocytes # (auto) 0.02 K/uL (0.00-0.02); Immature Granulocytes % (auto) 0.2 %; Lymphocytes % (auto) 25.8 %; Mean Corpuscular Hemoglobin 32.6 pg (25.0-34.0); Mean Corpuscular Hgb Conc 33.5 g/dL (32.0-36.0); Mean Corpuscular Volume 97.4 fL (80.0-100.0); Mean Platelet Volume 9.8 fL (9.4-12.4); Monocytes # (auto) 0.46 K/uL (0.24-0.82); Monocytes % (auto) 5.4 %; Neutrophils # (auto) 5.24 K/uL (1.4-6.5); Neutrophils % (auto) 61.5 %; Platelet Count 209 K/uL (130-400); RDW Standard Deviation 45.9 fL (36.4-46.3); Red Blood Count 3.89 M/uL (4.63-6.08); White Blood Count 8.52 K/ul (4.8-10.8)
[2022-04-05 03:47] LABS: Partial Thromboplastin Ratio 1.2; Partial Thromboplastin Time 32.9 Seconds (21.0-31.0)
[2022-04-05 03:57] LABS: BUN Creatinine Ratio 25.3 (10-20); Calcium 8.3 mg/dl (8.5-10.1); Creatinine Clr Calc Pharmacy 134.9 ml/min; Est GFR (African American) 101.8 ml/min; Est GFR (Non-African American) 87.8 ml/min
[2022-04-05] MEDS ORDERED: HEPARIN SOD (PORCINE) 1000 UNIT/ML IV ONE (04:45)
--- NOTE | 2022-04-05 07:27 | Electrocardiogram Report ---
Test Reason : Blood Pressure : / mmHG Vent. Rate : 165 BPM Atrial Rate : 166 BPM P-R Int : 000 ms QRS Dur : 086 ms QT Int : 286 ms P-R-T Axes : 000 018 004 degrees QTc Int : 473 ms Atrial flutter with rapid ventricular response Inferior infarct , age undetermined Abnormal ECG No previous ECGs available Confirmed by Travis Krishnan ([id number]) on 04/05/2022 7:26:55 AM Referred By: ER Confirmed By:Travis Krsihnan
--- NOTE | 2022-04-05 07:28 | Electrocardiogram Report ---
Test Reason : Blood Pressure : / mmHG Vent. Rate : 084 BPM Atrial Rate : 394 BPM P-R Int : 000 ms QRS Dur : 094 ms QT Int : 324 ms P-R-T Axes : 000 020 014 degrees QTc Int : 382 ms Atrial flutter Possible Inferior infarct Abnormal ECG When compared with ECG of 04-APR-2022 11:04, Vent. rate has decreased BY 80 BPM Confirmed by Travis Krishnan ([id number]) on 04/05/2022 7:28:20 AM Referred By: ER Confirmed By:Travis Krishnan
--- NOTE | 2022-04-05 07:28 | Electrocardiogram Report ---
Test Reason : Blood Pressure : / mmHG Vent. Rate : 164 BPM Atrial Rate : 055 BPM P-R Int : 000 ms QRS Dur : 086 ms QT Int : 288 ms P-R-T Axes : 000 020 -07 degrees QTc Int : 475 ms Atrial flutter with rapid ventricular response Possible Inferior infarct (cited on or before 04-APR-2022) Abnormal ECG When compared with ECG of 04-APR-2022 10:33, No significant change was found Confirmed by Travis Krishnan ([id number]) on 04/05/2022 7:27:51 AM Referred By: ER Confirmed By:Travis Krishnan
--- NOTE | 2022-04-05 07:44 | Hospitalist Progress Note ---
Date of Service April 05, 2022 Assessment & Plan (1) Atrial flutter with rapid ventricular response: Plan: Patient is a 51-year-old male with PMH atrial flutter and atrial fibrillation s/p cardioversion x 4 (last was ~2014), s/p ablation x 2 (last ~10 years ago), n ot on anticoagulation, HTN, presented to ER with c/o palpitations. 5 days ago episode of palpitations lasting 3-4 hours. Over 24 hrs of palpitations, dizziness, SOB, diaphoresis. Took 40mg home nebivolol (not nadolol) around 11:30P-12:00A. In ER patient afebrile, BP: 107/60. Initial HR in 160's. Appeared like SVT on initial EKG. Was given adenosine 6mg IV in ER without improvement followed by additional 12mg and appeared to be in atrial flutter. Was given cardizem 20mg IV and is on Cardizem drip at 5mg/hr with HR in 80's and patient no longer symptomatic. D-dimer: 520 CTA chest: no PE Continued Cardizem drip on admission - will stop now Heparin drip - > transition to Eliquis Echo obtained LV is normal in size. Mild concentric LVH. LV wall motion is normal. EF 60 to 65%. LA is moderately dilated. Aortic valve sclerosis mild, without significant aortic valvular stenosis. There is mild mitral regurg. There is mild tricuspid regurg. RV systolic pressure is elevated at 30 to 40 mmHg. troponin followed - minimally elevated ~ 40s TSH 3.8 wnl Cardiology consulted Eliquis at 5 mg twice per day Begin metoprolol succinate 50 mg twice per day now and for discharge Furosemide 20 mg p.o. daily x3 days Patient to follow-up with primary chief operating officer in the next 1 to 2 days and avoid any strenuous activity until evaluation complete Will need alcohol abstention, treatment of underlying sleep apnea (2) Elevated troponin: Plan: High sensitivity troponin: 42 Likely demand from rapid HR cardiology involved, as above (3) HTN (hypertension): Plan: as above (4) Renal insufficiency: Plan: BUN: 31. Cr: 1.47. Unsure of baseline In ER given NSS Monitor renal functions, avoid nephrotoxic agents when possible DVT Prophylaxis On Heparin IV -> Eliquis Full Code as per discussion with pt Patient from [place]. Unsure of PCP name. Follows with Dr Missael Fuentes for cardiology care Admission and Anticipated Discharge Date Admission Date: April 04, 2022 Subjective Patient seen in follow-up of A arthur, RVR Currently patient is lying in bed, in no acute distress, on IV heparin and IV Cardizem Heart rate is controlled. Currently no shortness of breath or palpitations. Overall feeling better. Patient seen by cardiology Pt resides in [place], plans to follow-up closely with his chief operating officer. Review of Systems Review of Systems: All systems reviewed & are unremarkable except as noted in Subjective Physical Exam Physical Exam: General: obese M in no acute distress Head: normocephalic, atraumatic Eyes: EOMI, PERRL, conjunctiva non-injected, anicteric ENT: normal inspection external ears, nose, mucous membranes moist Neck: supple, trachea midline Lungs: clear, no respiratory distress, no wheezing/rhonchi/rales CV: irregularly irregular, rate 70s, no murmur, trace pretibial edema Abd: normal BS, soft, obese, non-tender Ext: no calf tenderness, moves extremities Neuro: A&O x 3, no focal deficits noted, normal affect Skin: warm, dry Results & Data Results & Data ([facility]) Vital Signs (Past 12 Hours) Vital Signs Temp Pulse Pulse Resp BP Pulse Ox O2 Del Method 04/05/22 03:00 36.5 C 77 20 121/81 92 Room Air 04/05/22 00:22 89 04/04/22 22:53 37.0 C 79 20 107/79 93 Laboratory Results 04/05/22 04/05/22 04/05/22 Range/Units 03:14 03:14 03:14 WBC 8.52 (4.8-10.8) K/ul RBC 3.89 L (4.63-6.08) M/uL Hgb 12.7 L (14.0-18.0) g/dl Hct 37.9 L (40.1-51.0) % MCV 97.4 (80.0-100.0) fL MCH 32.6 (25.0-34.0) pg MCHC 33.5 (32.0-36.0) g/dL RDW Std Deviation 45.9 (36.4-46.3) fL RDW Coeff of Darby 13.0 (11.5-14.5) % Plt Count 209 (130-400) K/uL MPV 9.8 (9.4-12.4) fL Immature Gran % (Auto) 0.2 % Neut % (Auto) 61.5 % Lymph % (Auto) 25.8 % Saunders % (Auto) 5.4 % Eos % (Auto) 6.7 % Baso % (Auto) 0.4 % Neut # (Auto) 5.24 (1.4-6.5) K/uL Lymph # (Auto) 2.20 (1.2-3.4) K/uL Saunders # (Auto) 0.46 (0.24-0.82) K/uL Eos # (Auto) 0.57 H (0-0.50) K/uL Baso # (Auto) 0.03 (0-0.2) K/uL Immature Gran # (Auto) 0.02 (0.00-0.02) K/uL PT INR APTT 32.9 H PTT Ratio 1.2 D-Dimer Sodium 136 (136-145) mmol/L Potassium 4.0 (3.5-5.1) mmol/L Chloride 105 (98-107) mmol/L Carbon Dioxide 24 (21-32) mmol/L Anion Gap 7 (3-11) BUN 25 H (6-23) mg/dl Creatinine 0.99 D (0.6-1.4) mg/dl Est Cr Clr Drug Dosing 134.9 ml/min Est GFR ( Amer) 101.8 ml/min Est GFR (Non-Af Amer) 87.8 ml/min BUN/Creatinine Ratio 25.3 H (10-20) Glucose 98 (70-99(Fasting)) mg/dl Calcium 8.3 L (8.5-10.1) mg/dl Magnesium (1.7-2.4) mg/dl Troponin I High Sens (0-20) pg/ml Lipase (11-82) U/L TSH (0.300-4.500) uIu/ml SARS-CoV-2, RNA, NAAT (NEGATIVE) 04/05/22 04/04/22 04/04/22 Range/Units 00:29 19:02 13:00 WBC (4.8-10.8) K/ul RBC (4.63-6.08) M/uL Hgb (14.0-18.0) g/dl Hct (40.1-51.0) % MCV (80.0-100.0) fL MCH (25.0-34.0) pg MCHC (32.0-36.0) g/dL RDW Std Deviation (36.4-46.3) fL RDW Coeff of Darby (11.5-14.5) % Plt Count (130-400) K/uL MPV (9.4-12.4) fL Immature Gran % (Auto) % Neut % (Auto) % Lymph % (Auto) % Saunders % (Auto) % Eos % (Auto) % Baso % (Auto) % Neut # (Auto) (1.4-6.5) K/uL Lymph # (Auto) (1.2-3.4) K/uL Saunders # (Auto) (0.24-0.82) K/uL Eos # (Auto) (0-0.50) K/uL Baso # (Auto) (0-0.2) K/uL Immature Gran # (Auto) (0.00-0.02) K/uL PT INR APTT PTT Ratio D-Dimer Sodium (136-145) mmol/L Potassium (3.5-5.1) mmol/L Chloride (98-107) mmol/L Carbon Dioxide (21-32) mmol/L Anion Gap (3-11) BUN (6-23) mg/dl Creatinine (0.6-1.4) mg/dl Est Cr Clr Drug Dosing ml/min Est GFR ( Amer) ml/min Est GFR (Non-Af Amer) ml/min BUN/Creatinine Ratio (10-20) Glucose (70-99(Fasting)) mg/dl Calcium (8.5-10.1) mg/dl Magnesium (1.7-2.4) mg/dl Troponin I High Sens 41.5 H 50.9 H* 42.7 H (0-20) pg/ml Lipase (11-82) U/L TSH (0.300-4.500) uIu/ml SARS-CoV-2, RNA, NAAT (NEGATIVE) 04/04/22 04/04/22 04/04/22 Range/Units 11:50 11:29 10:40 WBC (4.8-10.8) K/ul RBC (4.63-6.08) M/uL Hgb (14.0-18.0) g/dl Hct (40.1-51.0) % MCV (80.0-100.0) fL MCH (25.0-34.0) pg MCHC (32.0-36.0) g/dL RDW Std Deviation (36.4-46.3) fL RDW Coeff of Darby (11.5-14.5) % Plt Count (130-400) K/uL MPV (9.4-12.4) fL Immature Gran % (Auto) % Neut % (Auto) % Lymph % (Auto) % Saunders % (Auto) % Eos % (Auto) % Baso % (Auto) % Neut # (Auto) (1.4-6.5) K/uL Lymph # (Auto) (1.2-3.4) K/uL Saunders # (Auto) (0.24-0.82) K/uL Eos # (Auto) (0-0.50) K/uL Baso # (Auto) (0-0.2) K/uL Immature Gran # (Auto) (0.00-0.02) K/uL PT 11.1 INR 1.0 APTT 24.4 PTT Ratio 0.9 D-Dimer 520 H* Sodium (136-145) mmol/L Potassium (3.5-5.1) mmol/L Chloride (98-107) mmol/L Carbon Dioxide (21-32) mmol/L Anion Gap (3-11) BUN (6-23) mg/dl Creatinine (0.6-1.4) mg/dl Est Cr Clr Drug Dosing ml/min Est GFR ( Amer) ml/min Est GFR (Non-Af Amer) ml/min BUN/Creatinine Ratio (10-20) Glucose (70-99(Fasting)) mg/dl Calcium (8.5-10.1) mg/dl Magnesium (1.7-2.4) mg/dl Troponin I High Sens (0-20) pg/ml Lipase (11-82) U/L TSH 3.842 (0.300-4.500) uIu/ml SARS-CoV-2, RNA, NAAT NEGATIVE (NEGATIVE) 04/04/22 04/04/22 04/04/22 Range/Units 10:40 10:40 10:40 WBC 12.74 H (4.8-10.8) K/ul RBC 4.59 L (4.63-6.08) M/uL Hgb 15.1 (14.0-18.0) g/dl Hct 46.0 (40.1-51.0) % MCV 100.2 H (80.0-100.0) fL MCH 32.9 (25.0-34.0) pg MCHC 32.8 (32.0-36.0) g/dL RDW Std Deviation 48.1 H (36.4-46.3) fL RDW Coeff of Darby 13.2 (11.5-14.5) % Plt Count 294 (130-400) K/uL MPV 9.8 (9.4-12.4) fL Immature Gran % (Auto) 0.3 % Neut % (Auto) 71.7 % Lymph % (Auto) 18.4 % Saunders % (Auto) 6.8 % Eos % (Auto) 2.5 % Baso % (Auto) 0.3 % Neut # (Auto) 9.12 H (1.4-6.5) K/uL Lymph # (Auto) 2.35 (1.2-3.4) K/uL Saunders # (Auto) 0.87 H (0.24-0.82) K/uL Eos # (Auto) 0.32 (0-0.50) K/uL Baso # (Auto) 0.04 (0-0.2) K/uL Immature Gran # (Auto) 0.04 H (0.00-0.02) K/uL PT Cancelled INR Cancelled APTT Cancelled PTT Ratio Cancelled D-Dimer Cancelled Sodium 139 (136-145) mmol/L Potassium 4.9 (3.5-5.1) mmol/L Chloride 103 (98-107) mmol/L Carbon Dioxide 26 (21-32) mmol/L Anion Gap 10 (3-11) BUN 31 H (6-23) mg/dl Creatinine 1.47 H (0.6-1.4) mg/dl Est Cr Clr Drug Dosing 90.3 ml/min Est GFR ( Amer) 63.1 ml/min Est GFR (Non-Af Amer) 54.5 ml/min BUN/Creatinine Ratio 21.1 H (10-20) Glucose 143 H (70-99(Fasting)) mg/dl Calcium 8.9 (8.5-10.1) mg/dl Magnesium 1.8 (1.7-2.4) mg/dl Troponin I High Sens 40.2 H (0-20) pg/ml Lipase 28 (11-82) U/L TSH (0.300-4.500) uIu/ml SARS-CoV-2, RNA, NAAT (NEGATIVE) Medications Administered Current Inpatient Medications Acetaminophen (Acetaminophen 325 Mg Tab) 650 mg PO Q4H PRN PRN Reason: Pain or Fever Stop: 05/04/22 18:41 Al Hydrox/Mg Hydrox/Simethicone (Aluminum/Magnesium Susp 30 Ml Udc) 15 ml PO Q4H PRN PRN Reason: Dyspepsia Stop: 05/04/22 18:41 Diltiazem HCl 125 mg/ Dextrose 125 mls @ 5 mls/hr IV .Q24H RADHA; Protocol Stop: 05/04/22 10:44 Last Titration: 04/05/22 06:56 Dose: 5 mg/hr, 5 mls/hr Heparin Sodium/Dextrose (Heparin Sodium/Dextrose) 25,000 units in 500 mls @ 43 mls/hr IV .[id number] RADHA; Protocol Stop: 05/04/22 18:41 Last Titration: 04/05/22 06:56 Dose: 2,150 units/hr, 43 mls/hr Nadolol (Nadolol 40 Mg Tab) 40 mg PO BID [facility] Stop: 05/04/22 20:59 Last Admin: 04/04/22 21:32 Dose: 40 mg Polyethylene Glycol (Polyethylene (Miralax) 17 Gm Pack) 17 gm PO DAILY PRN PRN Reason: Constipation Stop: 05/04/22 18:41
[2022-04-05] MEDS: nadoloL 40 MG TAB PO SCH (07:54)
[2022-04-05] MEDS: HEPARIN SODIUM/DEXTROSE 25,000 UNITS/500 ML BAG IV SCH (09:22)
[2022-04-05] MEDS: dilTIAZem HCL 125 MG in DEXTROSE 5% 100 ML IV SCH (09:22)
[2022-04-05 10:29] LABS: Partial Thromboplastin Ratio 1.5; Partial Thromboplastin Time 42.4 Seconds (21.0-31.0)
--- NOTE | 2022-04-05 11:48 | Cardiology Consultation ---
Date of Consultation April 05, 2022 Assessment & Plan (1) Atrial fibrillation: (2) Atrial flutter with rapid ventricular response: (3) HTN (hypertension): (4) Elevated troponin: Plan Patient is a complex 51-year-old male with longstanding history of hypertension and and paroxysmal A. fib flutter with prior pulmonary vein isolation ablation x2 Presents now with subacute onset of atrial arrhythmias possible weeks in duration but culminating worsening symptoms and elevated heart rate with extended days duration Exam on presentation reflected mild volume overload with preserved ejection fraction. Troponins minimally elevated but flat consistent with acute process but no acute myocardial infarction by EKG or echocardiogram Patient treated with IV heparin, IV diltiazem. As initial med rec placed in error patient on nadolol this was increased to 40 mg twice per day (patient not on at home) Recommendations: Recurrent atrial fibrillation flutter with elevated ventricular response rate: Patient clinically improved with rate control this morning. Anxious to return to home in [place] and primary corporate auditor/customer consulting manager. Discussed options of management. Would not consider cardioversion currently given extended duration of arrhythmia and current rate control. Could consider NOLAN guided cardioversion if rates increase or symptoms worsen. Patient may ultimately require antiarrhythmic therapy versus repeat ablation. Initiate anticoagulation with oral Eliquis at 5 mg twice per day, discontinue IV heparin Begin metoprolol succinate 50 mg twice per day now and for discharge Furosemide 20 mg p.o. daily x3 days Patient to follow-up with primary corporate auditor in the next 1 to 2 days and avoid any strenuous activity until evaluation complete Will need alcohol abstention, treatment of underlying sleep apnea History of Present Illness Reason for Consultation: Atrial fibrillation flutter with rapid response Requesting Physician: Dr. Wooten Attending Physician: Basilio Wooten MD History of Present Illness Patient is a 51-year-old male with ongoing issues include 1. Paroxysmal atrial fibrillation/flutter status post ablation x2, past cardioversion. No recent arrhythmias until current presentation. 2. Hypertension 3. Obesity 4. Obstructive sleep apnea untreated Patient was seen and examined and history reviewed. Patient notes symptoms of intermittent tachypalpitations of at least 1 weeks duration possibly signif icantly longer. Symptoms worsened recently after vacation with increased alcohol intake, increased lower extremity edema. 1 evening with acute dyspnea and diaphoresis, inability to sleep. Took 2 additional Bystolic tablets (20 mg each) patient ultimately presented due to persistent symptoms for ER evaluation found to be in atrial fibrillation flutter with rapid ventricular response. Patient responded to IV diltiazem. Patient's initial med rec listed patient's home medications with nadolol and was treated with 40 mg twice per day since since admission. Note reviewed with patient he takes Bystolic ( nebivolol ) at maximal dose 20 mg daily. He denies prior history rheumatic fever scarlet fever or heart murmur. Notes no prior history of myocardial infarction angina or congestive heart failure. Patient is not diabetic No history of syncope or near syncope. 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 No fevers chills or unexplained infections. No bleeding difficulties. Allergies Allergy/AdvReac Type Severity Reaction Status Date / Time No Known Drug Allergies Allergy Verified 04/04/22 15:05 Home Medications Medication Instructions Recorded Confirmed Type aspirin 325 mg tablet 325 mg PO DAILY 04/04/22 04/04/22 History multivitamin 1 tab PO DAILY 04/04/22 04/04/22 History nebivolol 20 mg tablet (Bystolic) 20 mg DAILY 04/05/22 04/05/22 History Patient History Medical History Atrial fibrillation HTN (hypertension) Surgical History S/P skin biopsy Family History Brother Cancer Mother Hypertension Social History Smoking Status: Never smoker Hx Alcohol Use: Yes Alcohol type: beer, wine and hard liquor Alcohol Intake Frequency: 2-3 x/Week Hx Substance Use: No Preferred Language: Azeri Communication Ability: Effective Emt Required: No Beliefs That Will Affect Care: None Current Living Situation: Alone Other Information That Helps Us Care for You: No Feels Safe at Home: Yes Safety Concerns: Feels Safe At This Time Assistive Devices: Glasses Review of Systems Review of Systems: All systems reviewed & are unremarkable except as noted in HPI & below Physical Exam Constitutional: WD/WN, vitals as above + obese; no acute distress Eyes: PERRL, conjunctivae normal, anicteric sclerae ENMT: external ear and nose normal, oropharynx normal Neck: trachea midline, no thyromegaly Respiratory: normal respiratory effort, lungs clear to auscultation Cardiovascular: Rate/Rhythm: + irregularly irregular Heart Sounds: normal S1 and normal S2; no gallop and no murmur Palpation: normal PMI Vessels: normal carotid upstroke and radial pulses present; no JVD and no carotid bruit Trace bilateral Gastrointestinal (Abdomen): normal bowel sounds, soft, nontender, no hepatosplenomegaly Musculoskeletal: no cyanosis or clubbing, extremities motor strength 5/5 Skin: no rashes, warm and dry Neurologic: PERRL, EOMI, accommodation nl, no face palsy, no dysarthria Psychiatric: A+Ox3, euthymic affect Results & Data ([facility]) Vital Signs (Past 12 Hours) Vital Signs Temp Pulse Pulse Resp BP Pulse Ox O2 Del Method 04/05/22 11:16 36.5 C 79 20 146/90 H 92 Room Air 04/05/22 09:47 78 04/05/22 08:11 36.5 C 79 19 126/82 91 Room Air 04/05/22 03:00 36.5 C 77 20 121/81 92 Room Air 04/05/22 00:22 89 Laboratory Results Laboratory Results - last 24 hr 04/04/22 04/04/22 04/04/22 10:40 11:29 11:50 WBC RBC Hgb Hct MCV MCH MCHC RDW Std Deviation RDW Coeff of Darby Plt Count MPV Immature Gran % (Auto) Neut % (Auto) Lymph % (Auto) [place] % (Auto) Eos % (Auto) Baso % (Auto) Neut # (Auto) Lymph # (Auto) [place] # (Auto) Eos # (Auto) Baso # (Auto) Immature Gran # (Auto) PT 11.1 INR 1.0 APTT 24.4 PTT Ratio 0.9 D-Dimer 520 H* Sodium Potassium Chloride Carbon Dioxide Anion Gap BUN Creatinine Est Cr Clr Drug Dosing Est GFR ( Amer) Est GFR (Non-Af Amer) BUN/Creatinine Ratio Glucose Calcium Troponin I High Sens TSH 3.842 SARS-CoV-2, RNA, NAAT NEGATIVE 04/04/22 04/04/22 04/05/22 13:00 19:02 00:29 WBC RBC Hgb Hct MCV MCH MCHC RDW Std Deviation RDW Coeff of Darby Plt Count MPV Immature Gran % (Auto) Neut % (Auto) Lymph % (Auto) [place] % (Auto) Eos % (Auto) Baso % (Auto) Neut # (Auto) Lymph # (Auto) [place] # (Auto) Eos # (Auto) Baso # (Auto) Immature Gran # (Auto) PT INR APTT PTT Ratio D-Dimer Sodium Potassium Chloride Carbon Dioxide Anion Gap BUN Creatinine Est Cr Clr Drug Dosing Est GFR ( Amer) Est GFR (Non-Af Amer) BUN/Creatinine Ratio Glucose Calcium Troponin I High Sens 42.7 H 50.9 H* 41.5 H TSH SARS-CoV-2, RNA, NAAT 04/05/22 04/05/22 04/05/22 03:14 03:14 03:14 WBC 8.52 RBC 3.89 L Hgb 12.7 L Hct 37.9 L MCV 97.4 MCH 32.6 MCHC 33.5 RDW Std Deviation 45.9 RDW Coeff of Darby 13.0 Plt Count 209 MPV 9.8 Immature Gran % (Auto) 0.2 Neut % (Auto) 61.5 Lymph % (Auto) 25.8 [place] % (Auto) 5.4 Eos % (Auto) 6.7 Baso % (Auto) 0.4 Neut # (Auto) 5.24 Lymph # (Auto) 2.20 [place] # (Auto) 0.46 Eos # (Auto) 0.57 H Baso # (Auto) 0.03 Immature Gran # (Auto) 0.02 PT INR APTT 32.9 H PTT Ratio 1.2 D-Dimer Sodium 136 Potassium 4.0 Chloride 105 Carbon Dioxide 24 Anion Gap 7 BUN 25 H Creatinine 0.99 D Est Cr Clr Drug Dosing 134.9 Est GFR ( Amer) 101.8 Est GFR (Non-Af Amer) 87.8 BUN/Creatinine Ratio 25.3 H Glucose 98 Calcium 8.3 L Troponin I High Sens TSH SARS-CoV-2, RNA, NAAT 04/05/22 04/05/22 08:44 10:10 WBC RBC Hgb Hct MCV MCH MCHC RDW Std Deviation RDW Coeff of Darby Plt Count MPV Immature Gran % (Auto) Neut % (Auto) Lymph % (Auto) [place] % (Auto) Eos % (Auto) Baso % (Auto) Neut # (Auto) Lymph # (Auto) [place] # (Auto) Eos # (Auto) Baso # (Auto) Immature Gran # (Auto) PT INR APTT 42.4 H PTT Ratio 1.5 D-Dimer Sodium Potassium Chloride Carbon Dioxide Anion Gap BUN Creatinine Est Cr Clr Drug Dosing Est GFR ( Amer) Est GFR (Non-Af Amer) BUN/Creatinine Ratio Glucose Calcium Troponin I High Sens 35.7 H TSH SARS-CoV-2, RNA, NAAT Diagnostic Findings Echocardiogram 04/05/2022 Normal left ventricular size and function with mild left ventricular hypertrophy EF 60-65% Moderate left atrial enlargement Aortic sclerosis without stenosis Mild mitral tricuspid insufficiency with borderline elevation pulmonary pressures ECG Additional Comments: Atrial fibrillation without ST segment abnormality or Q waves 05-APR-2022 06:25:44 [facility] ROUTINE RETRIEVAL Atrial fibrillation Abnormal ECG When compared with ECG of 04-APR-2022 11:04, Atrial fibrillation has replaced Atrial flutter QT has lengthened
[2022-04-05] MEDS ORDERED: APIXABAN 5 MG TABLET PO SCH (13:00)
--- NOTE | 2022-04-05 13:04 | Discharge Summary ---
Date of Service April 05, 2022 Admission HPI Per Admitting Provider Patient is a 51-year-old male with PMH atrial flutter and atrial fibrillation s/p cardioversion x 4 (last was ~2014), s/p ablation x 2 (last ~10 years ago), not on anticoagulation, HTN, presented to ER with c/o palpitations. Patient reports was on vacation last week. 5 days ago felt like his heart was racing that lasted 3-4 hours. He states he took Benadryl at that time. 2 days ago drinking 6-7 drinks of hard liquor. Was drinking alcohol most of the week while on vacation. He normally has couple of drinks on the weekends. Yesterday morning felt like heart was racing. Travelled from [place] to [place] today to move his daughter in to college. He felt like having heart racing all day, worse at dinner time. Last night woke up from sleep around 11:30PM very diaphoretic with increased heart racing, SOB, nausea, dizziness. He took extra 40mg Nadolol during the night. He tried Valsalva maneuver without relief. Patient also reports that he has torn ACL to right leg. Had swelling to right leg and reports had US RLE to r/o DVT that was negative approx 1 month ago. Right foot was swollen after standing all day couple of days ago. Taking Aleve and elevated foot. Denies fever/chills, V/D/C, LAINEZ, syncope, vision changes, neck pain, orthopnea, cough, sore throat, choking, otalgia, rhinorrhea, abdominal pain, paresthesias, weakness, extremity weakness, rashes, urinary symptoms. Follows with [facility] cardiology in [place]- Dr Missael Fuentes Admission Exam Per Admitting Provider General: no acute distress, obese Head: normocephalic, atraumatic Eyes: conjunctiva non-injected, anicteric ENT: normal inspection external ears, nose, mucous membranes moist Neck: supple, trachea midline Lungs: clear, no respiratory distress, no wheezing/rhonchi/rales CV: irregularly irregular, rate 86, no murmur, trace pretibial edema Abd: protuberant, normal BS, soft, non-tender Ext: no cyanosis, no erythema, no calf tenderness Neuro: A&O x 3, no focal deficits noted, normal affect Skin: warm, dry Principal Diagnosis Atrial flutter with RVR Discharge Exam General: obese M in no acute distress Head: normocephalic, atraumatic Eyes: EOMI, PERRL, conjunctiva non-injected, anicteric ENT: normal inspection external ears, nose, mucous membranes moist Neck: supple, trachea midline Lungs: clear, no respiratory distress, no wheezing/rhonchi/rales CV: irregularly irregular, rate 70s, no murmur, trace pretibial edema Abd: normal BS, soft, obese, non-tender Ext: no calf tenderness, moves extremities Neuro: A&O x 3, no focal deficits noted, normal affect Skin: warm, dry Discharge Data Allergies Allergy/AdvReac Type Severity Reaction Status Date / Time No Known Drug Allergies Allergy Verified 04/04/22 15:05 Consultations 04/04/22 14:23 ED Decision to Admit Stat 04/04/22 18:42 Consult Cardiology Routine Ordered Studies 04/04/22 12:03 CT angio chest PE protocol Stat FINDINGS: Thyroid: Imaged portions of the thyroid gland are normal in size and attenuation. Thoracic aorta: The thoracic aorta is normal in caliber and demonstrates bovine variant arch anatomy. No dissection is seen. Pulmonary vasculature: The pulmonary trunk is normal in caliber. There are no filling defects identified in main, lobar, or proximal segmental pulmonary branches to suggest pulmonary embolus. Evaluation of the segmental and subsegmental branches is by motion artifact. Heart: The heart is normal in size and without pericardial effusion. Lungs and pleural spaces: Evaluation of the lung parenchyma is modestly degraded by motion artifact. Mild emphysematous change is noted at the apices. Intralobular septal thickening throughout both lungs indicates congestive failure. The trachea and central airways are clear. No airspace consolidation is seen typical for pneumonia. There are small pleural effusions with dependent atelectasis. Mediastinum: There is no mediastinal lymphadenopathy. Zoila: Clear. Axillae: There is no axillary lymphadenopathy. Upper abdomen: Partially visualized upper abdominal viscera is within normal limits. Skeletal structures: No lytic or blastic bony lesions are seen. IMPRESSION: 1. There is no evidence of central pulmonary embolus in the main, lobar, or proximal segmental pulmonary arteries. Evaluation of the segmental and subsegmental branches is compromised by motion artifact. 2. Cardiomegaly with evidence of congestive failure. 3. Small pleural effusions. 4. Additional findings as above. Hospital Course (1) Atrial flutter with rapid ventricular response: Patient is a 51-year-old male with PMH atrial flutter and atrial fibrillation s/p cardioversion x 4 (last was ~2014), s/p ablation x 2 (last ~10 years ago), not on anticoagulation, HTN, presented to ER with c/o palpitations. 5 days ago episode of palpitations lasting 3-4 hours. Over 24 hrs of palpitations, dizziness, SOB, diaphoresis. Took 40mg home nebivolol (not nadolol) around 11:30P-12:00A. In ER patient afebrile, BP: 107/60. Initial HR in 160's. Appeared like SVT on initial EKG. Was given adenosine 6mg IV in ER without improvement followed by additional 12mg and appeared to be in atrial flutter. Was given cardizem 20mg IV and is on Cardizem drip at 5mg/hr with HR in 80's and patient no longer symptomatic. D-dimer: 520 CTA chest: no PE Continued Cardizem drip on admission - will stop now Heparin drip - > transition to Eliquis Echo obtained LV is normal in size. Mild concentric LVH. LV wall motion is normal. EF 60 to 65%. LA is moderately dilated. Aortic valve sclerosis mild, without signi ficant aortic valvular stenosis. There is mild mitral regurg. There is mild tricuspid regurg. RV systolic pressure is elevated at 30 to 40 mmHg. troponin followed - minimally elevated ~ 40s TSH 3.8 wnl Cardiology consulted Eliquis at 5 mg twice per day Begin metoprolol succinate 50 mg twice per day now and for discharge Furosemide 20 mg p.o. daily x3 days Patient to follow-up with primary chemical milling processor in the next 1 to 2 days and avoid any strenuous activity until evaluation complete Will need alcohol abstention, treatment of underlying sleep apnea (2) Elevated troponin: High sensitivity troponin: 42 Likely demand from rapid HR cardiology involved, as above (3) HTN (hypertension): as above (4) Renal insufficiency: BUN: 31. Cr: 1.47. Unsure of baseline In ER given NSS Monitor renal functions, avoid nephrotoxic agents when possible Patient from [place] Unsure of PCP name. Follows with Dr Missael Fuentes for cardiology care Total Time Total Time Spent Total Time Spent (In Minutes): 40 Discharge Plan Discharge Items Patient Disposition: Home - Self-Care Reason For Visit: ARRHYTHMIA Discharge Diagnosis: Atrial flutter with RVR Activity: Per Instructions section Non-emergency contact: Primary Care Provider and Operator [employer] Call non-emergency contact if: you have any medication questions and your symptoms worsen Follow-up/Referrals: PCP,NO [Primary Care Provider] - Diet: Heart Healthy Addtl Attending Provider Instructions: Follow-up with your chemical milling processor within the next 1 to 2 days. Start taking metoprolol and Eliquis. Metoprolol is to control your heart rate, Eliquis is a blood thinner. Follow-up with your providers for your sleep apnea. Recommend to abstain from alcohol. Pending Studies at Discharge: No Stand-Alone Forms: My [facility] [employer], Smoking Cessation Medications and DC Order Prescriptions: New Eliquis 5 mg Tablet 5 mg PO BID 30 Days Qty: 60 0RF metoprolol succinate 50 mg Tablet Extended Release 24 Hr 50 mg PO BID Qty: 60 0RF furosemide [Lasix] 20 mg tablet 20 mg PO BID 3 Days Qty: 6 0RF Continued multivitamin Tablet 1 tab PO DAILY Discontinued aspirin 325 mg Tablet 325 mg PO DAILY nebivolol [Bystolic] 20 mg Tablet 20 mg DAILY Discharge Orders: Discharge Order (Routine); Ordered 04/05/22 Ordered By: Basilio Wooten Admission Data Admit Date/Time: 04/04/22 15:02 Attending Provider: Basilio Wooten Admit Provider: Francisca Salazar Primary Care Provider: PCP,NO Other Providers: Francisca Salazar ; Ajay Raymond
[2022-04-05] MEDS ORDERED: METOPROLOL SUCC 50MG EXT REL TAB PO SCH (17:00)
--- NOTE | 2022-04-05 21:18 | Electrocardiogram Report ---
Test Reason : Blood Pressure : / mmHG Vent. Rate : 083 BPM Atrial Rate : 104 BPM P-R Int : 000 ms QRS Dur : 094 ms QT Int : 388 ms P-R-T Axes : 000 030 025 degrees QTc Int : 455 ms Atrial fibrillation Possible Inferior infarct Abnormal ECG When compared with ECG of 04-APR-2022 11:04, Atrial fibrillation has replaced Atrial flutter QT has lengthened Confirmed by Travis Krishnan ([id number]) on 04/05/2022 9:17:38 PM Referred By: REFERRED SELF Confirmed By:Travis Krishnan
== END 2022-04-05 15:09 | disposition home or self-care (01) | DRG 309 ==
LOC: ED 10:21 → EDINP 15:02 → SUATTDRO 15:02 → 4W 17:59
DX: G47.33 Obstructive sleep apnea (adult) (pediatric); N28.9 Disorder of kidney and ureter, unspecified; I10 Essential (primary) hypertension; I48.92 Unspecified atrial flutter; I24.8 Other forms of acute ischemic heart disease